=== PATIENT | female | born 1985 | race Caucasian/White ===

== ENCOUNTER 2020-05-25 11:06 | Emergency (ER) | payer OTHER, SELFPAY ==
[2020-05-25 11:16] VITALS: BP 133/88; PULSE 67; RESP 16; TEMP 36.6; O2SAT 98
--- NOTE | 2020-05-25 11:30 | ED.EXTPRO ---
HPI - Extremity Problem General Chief complaint: Extremity Problem,Nontraumatic Stated complaint: right arm pain Time Seen by Provider: 05/25/20 11:17 Source: patient and RN notes reviewed Mode of arrival: ambulatory Limitations: no limitations History of Present Illness HPI Narrative: Patient presents today complaining of right shoulder and arm pain radiating to the right wrist since waking up from sleep at 8 PM last night. Denies injury or trauma. Denies neck pain. She does report some mild tingling in fingers 2 and 3. Denies numbness. Currently rates her pain 6/10 and has been taking Tylenol without relief. MD Complaint: extremity pain Related Data Allergies Allergy/AdvReac Type Severity Reaction Status Date / Time blueberry Allergy Unknown Other Verified 05/25/20 11:17 COCONUT Allergy Unknown Difficulty Uncoded 05/25/20 11:18 Swallowing Review of Systems Review of Systems: Narrative: CONSTITUTIONAL: Denies body aches, fever, chills, or sweats. EYES: Denies visual changes, redness, or discharge. ENT: Denies rhinorrhea, congestion, sore throat, or otalgia. CARDIOVASCULAR: Denies chest pain, palpitations, or edema. RESPIRATORY: Denies cough or dyspnea. GASTROINTESTINAL: Denies abdominal pain, nausea, vomiting, or diarrhea. GENITOURINARY: Denies dysuria or hematuria. SKIN: Denies rash, itching, or wounds. MUSCULOSKELETAL: Denies back pain, or myalgia. + Right arm pain NEUROLOGIC: Denies headache, numbness, or weakness. + Tingling in right fingers 2 and 3 PSYCH: Denies depression or anxiety. PMFSH Social History Social History Gender identity (if verbalized by the patient): Female Comments At time of signature, I have reviewed and agree with nursing past medical, surgical, social and family history unless otherwise noted. Please see nursing chart for further information. There is no relevant family history pertinent to the presenting complaint Exam Narrative: Exam Narrative: GENERAL: Well-appearing, well-nourished, and in mild pain distress. Holding her arm at her side with elbow at 90 degrees. HEAD: Normocephalic, atraumatic. EYES: EOMI. No redness or drainage. Conjunctivae normal. ENT: Mucous membranes pink and moist. NECK: Normal AROM. Supple. No lymphadenopathy. Neck is nontender. CHEST: No respiratory distress. MUSCULOSKELETAL: No bony tenderness of spine. EXTREMITIES: Right arm: Full AROM of the shoulder, elbow, and wrist with increased pain. Tenderness about the shoulder, bicep, elbow, forearm, and wrist. No edema, erythema, ecchymosis, deformity noted. Distal sensation intact. Capillary refill normal. Radial pulse normal. Color normal. All other extremities grossly normal. SKIN: Warm, dry, no rash. Capillary refill normal. Normal skin turgor. NEURO: No focal deficits. Alert and oriented x3. Gait steady. PSYCH: Normal affect. No signs of depression or anxiety. Course Vital Signs Vital signs: Vital Signs Temperature 97.9 F 05/25/20 11:16 Pulse Rate 67 05/25/20 11:16 Respiratory Rate 16 05/25/20 11:16 Blood Pressure 133/88 05/25/20 11:16 Pulse Oximetry 98 05/25/20 11:16 Temperature 97.9 F 05/25/20 11:16 Pulse Rate 67 05/25/20 11:16 Respiratory Rate 16 05/25/20 11:16 Blood Pressure 133/88 05/25/20 11:16 Pulse Oximetry 98 05/25/20 11:16 Reviewed. Pt has been instructed to follow up with her PCP regarding her elevated blood pressure today. MDM - Extremity (Nontraumatic) Differential Diagnosis Differential diagnosis: Likely other (Cervical radiculopathy, muscle spasm, muscle strain, torticollis, nerve entrapment) Critical Care Time Critical Care Time Critical Care Time: No Discharge Plan Discharge Clinical Impression: Cervical radiculopathy Patient Disposition: Home, Self-Care Condition: Stable Instructions: Cervical Radiculopathy (ED) Additional Instructions: Your sym
== END 2020-05-25 11:35 | disposition home or self-care (01) ==
PROVIDERS: Emergency Provider Nurse Practitioner
DX: M54.12 Radiculopathy, cervical region (principal)
CPT/HCPCS: 99213; G0463

== ENCOUNTER → 2020-11-08 09:55 | Outpatient (CLI) | payer OTHER, SELFPAY ==
--- NOTE | ~2020-11-08 | XR_ITS ---
EXAMINATION: XR soft tissue neck DATE: 11/08/2020 10:15 INDICATION: Right neck mass. TECHNIQUE: 2 views of the neck soft tissues were obtained. COMPARISON: None. FINDINGS: The adenoids, palatine tonsils, prevertebral soft tissues, epiglottis, and airway are wen l. IMPRESSION: 1. Normal neck soft tissues. Reviewed, dictated and finalized at location A. R SCHOOL DRIVER
== END ==
PROVIDERS: PCP Emergency Medicine; Visit Provider Emergency Medicine
DX: M79.89 Other specified soft tissue disorders (principal)
CPT/HCPCS: 70360

== ENCOUNTER → 2021-05-16 12:39 | Outpatient (CLI) | payer OTHER, SELFPAY ==
--- NOTE | ~2021-05-16 | XR_ITS ---
EXAMINATION: XR knee LT min 4V DATE: 05/16/2021 12:54 INDICATION: Left knee pain. TECHNIQUE: 4 views of left knee were obtained. COMPARISON: None. FINDINGS: Bone alignment is normal. No fracture. There is mild tricompartmental osteoarthritis charac terized by tiny marginal osteophytes. No joint space narrowing. No knee joint effusion. IMPRESSION: 1. Mild left knee osteoarthritis. Reviewed, dictated and finalized at location A.
== END ==
PROVIDERS: PCP Emergency Medicine; Visit Provider Emergency Medicine
DX: M17.12 Unilateral primary osteoarthritis, left knee (principal)
CPT/HCPCS: 73564

== ENCOUNTER 2021-05-29 09:03 | Emergency (ER) | payer OTHER, SELFPAY ==
--- NOTE | ~2021-05-29 | XR_ITS ---
EXAMINATION: XR shoulder RT min 2V DATE: 05/29/2021 10:14 INDICATION: Right shoulder pain. TECHNIQUE: 5 views of right shoulder were obtained. COMPARISON: None. FINDINGS: Bone alignment is normal. No fracture. The glenohumeral joint is normal. There is severe ac romioclavicular joint osteoarthritis. IMPRESSION: 1. Severe right acromioclavicular joint osteoarthritis. Reviewed, dictated and finalized at location A.
[2021-05-29 09:11] VITALS: BP 130/94; PULSE 69; RESP 18; TEMP 36.4; O2SAT 100
--- NOTE | 2021-05-29 09:11 | ED.EXTPRO ---
HPI - Extremity Problem General Chief complaint: Extremity Injury, Upper Stated complaint: RIGHT SHOULDER PAIN Time Seen by Provider: 05/29/21 09:25 Source: patient and RN notes reviewed Mode of arrival: ambulatory Limitations: no limitations History of Present Illness HPI Narrative: 35-year-old female with history of anxiety, depression, cholecystectomy, ovarian cancer presents with concern for acute right shoulder pain. She denies any injury or trauma. Reports she had a dull ache in the area yesterday. Reports overnight she began having severe pain. Reports pain with raising the right arm and lowering the right arm. Reports lateral shoulder tenderness, reports right upper arm tenderness. She denies clavicular pain or tenderness, posterior shoulder pain or tenderness. She denies open skin, abrasions, lacerations, warmth, swelling. Denies fever, body aches. Reports she used ibuprofen and a modified sling. MD Complaint: extremity pain Related Data Allergies Allergy/AdvReac Type Severity Reaction Status Date / Time No Known Allergies Allergy Verified 05/29/21 09:32 Review of Systems Review of Systems: CONSTITUTIONAL: Denies malaise, chills, sweats, or fever. CARDIOVASCULAR: Denies chest pain, palpitations, or edema. RESPIRATORY: Denies cough or dyspnea. SKIN: Denies rash or itching. Denies laceration, abrasions, redness, swelling, warmth MUSCULOSKELETAL: Reports right shoulder pain radiating to the right upper arm NEUROLOGIC: Denies numbness, weakness All systems reviewed & are unremarkable except as noted in HPI and below PMFSH Social History Social History Gender identity (if verbalized by the patient): Female Comments At time of signature, agree with nursing past medical, surgical, social and family history. There is no relevant family history pertinent to the presenting complaint Exam Narrative: GENERAL: Well-appearing, well-nourished, and in no acute distress. HEAD: Normocephalic, atraumatic. EYES: PERRLA, conjunctivae clear NECK: Supple. CHEST: Speaks in full sentences. No respiratory distress. HEART: Regular rate and rhythm. Normal and equal peripheral pulses. EXTREMITIES: Right shoulder has normal sensation, normal range of motion. No edema or ecchymosis. 3/5 strength with shoulder abduction. Normal sensation with sensitivity to light touch and pain. Lateral shoulder joint, upper arm tenderness. No open wounds, no skin tenting, no devitalized tissue or atrophy, no trophic changes, no obvious deformity, alignment normal, nearby joints and structures intact. Distal pulses palpable and equal bilaterally, skin warm, dry, pink. Capillary refill less than 3 seconds. SKIN: Warm, dry, no rash. NEURO: Alert and oriented x3. PSYCH: Normal mood and affect Course Course Emergency Course: Ketorolac IM given prior to x-ray imaging. Patient is aware of diagnosis, understands and agrees to treatment plan. Anticipatory guidance given. Patient agrees to follow-up as directed and is aware of reasons to seek care at the emergency department. Portions of this record may have been created with voice recognition software Vital Signs Vital signs: Reviewed. Patient has been instructed to follow up with her primary care provider within the next week regarding her elevated blood pressure today. MDM - Extremity (Nontraumatic) MDM Narrative Medical decision making narrative: Patients pain is consistent with musculoskeletal etiology. No signs of neurological or vascular compromise on exam. Compartments and tissues are soft without signs of compartment syndrome. Pain is felt appropriate for further evaluation on an outpatient basis. Imaging Data My impression: Images reviewed, interpreted by radiologist, agree, see report. Radiologist's impression: EXAMINATION: XR shoulder RT min 2V DATE: 05/29/2021 10:14 INDICATION: Right shoulder pain. TECHNIQUE: 5 views of right shoulde
[2021-05-29] MEDS: KETOROLAC (*BKC) 60 MG/2 ML VIAL IM (09:41)
== END 2021-05-29 10:44 | disposition home or self-care (01) ==
PROVIDERS: Emergency Provider Nurse Practitioner; PCP Emergency Medicine
DX: M19.011 Primary osteoarthritis, right shoulder (principal); M25.511 Pain in right shoulder
CPT/HCPCS: 73030; 96372; 99213; A4565; G0463; J1885

== ENCOUNTER 2021-10-22 10:38 | Emergency (ER) | payer OTHER, SELFPAY ==
[2021-10-22] VITALS (24 sets, daily range): BP systolic 118–135; BP diastolic 68–105; PULSE 48–66; RESP 11–28; TEMP 36.4–37; O2SAT 97–100
--- NOTE | ~2021-10-22 | XR_ITS ---
EXAMINATION: XR chest 2V DATE: 10/22/2021 11:05 INDICATION: Chest pain with inspiration TECHNIQUE: PA and lateral views of the chest are obtained. COMPARISON: 06/10/2016 FINDINGS: There are minimal opacities of the right lung base. There is no pleural effusion or pneumot horax. The cardiomediastinal silhouette is normal. There is mild thoracic spondylosis. IMPRESSION: 1. Minimal right basilar airspace opacity, consistent with atelectasis versus pneumonia. Reviewed, dictated and finalized at location A. ET CONSULTANT IMPRESSION: 1. Minimal right basilar airspace opacity, consistent with atelectasis versus p neumonia.
--- NOTE | 2021-10-22 10:43 | ECG_ITS ---
Measurements Intervals [place] Rate: 63 P: 23 NE: 131 QRS: 8 QRSD: 86 T: 35 QT: 442 QTc: 456 Interpretive Statements SINUS RHYTHM ATRIAL PREMATURE COMPLEX DELAYED PRECORDIAL R/S TRANSITION BORDERLINE ECG Electronically Signed On 10-22-2021 15:39:56 PROJECT CONTROLS SPECIALIST by Layo Griffith D.O.
--- NOTE | 2021-10-22 10:50 | ED.CHESTPAIN ---
HPI - Chest Pain General Chief Complaint: Chest Pain Stated Complaint: chest pain Time Seen by Provider: 10/22/21 10:49 Source: patient Mode of arrival: ambulatory Limitations: no limitations History of Present Illness HPI narrative: Patient is a 36-year-old female complaining of right chest wall pain, sharp, worse with movement of the right upper extremity and deep breaths, 6 out of 10 pain, started yesterday. 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 Patient denies any shortness of breath, abdominal pain, nausea, vomiting, diaphoresis, fever or chills. Related Data Home Medications Medication Instructions Recorded Confirmed No Home Medications 10/22/21 10/22/21 Allergies Allergy/AdvReac Type Severity Reaction Status Date / Time No Known Allergies Allergy Verified 10/22/21 10:50 Review of Systems Review of Systems: All systems reviewed & are unremarkable except as noted in HPI and below Constitutional: Constitutional: Denies body ache(s), Denies chills, Denies excessive sweating, Denies fatigue, Denies fever(s), Denies headache(s), Denies lethargy, Denies malaise, Denies weakness and Denies weight loss Eyes: Eyes: Denies blurry vision, Denies change in vision and Denies loss of vision ENT: Denies dizziness, Denies ear discharge, Denies headache(s), Denies lip swelling, Denies epistaxis, Denies nasal congestion, Denies neck pain, Denies throat swelling and Denies tongue swelling Cardiovascular: Cardiovascular: Denies chest pain at rest, Denies diaphoresis, Denies rapid heart rate, Denies edema, Denies irregular heart rhythm, Denies lightheadedness, Denies palpitations, Denies dyspnea and Denies dyspnea on exertion Respiratory: Respiratory: Denies chest congestion, Denies cough, Denies hemoptysis, Denies dyspnea and Denies dyspnea on exertion Gastrointestinal: Gastrointestinal: Denies abdominal pain, Denies melena, Denies hematochezia, Denies diarrhea, Denies nausea, Denies vomiting and Denies hematemesis Musculoskeletal: Musculoskeletal: Denies abnormal gait, Denies deformity, Denies joint swelling, Denies limited range of motion, Denies neck pain and Denies numbness Neurologic: Denies Abnormal speech present, Denies abnormal gait, Denies confusion, Denies dizziness, Denies headache(s), Denies focal weakness, Denies loss of vision, Denies numbness, Denies Other visual disturbances, Denies Sensory deficit (Neuro) and Denies weakness Psychiatric: Psychiatric: Denies confusion, Denies depression, Denies auditory hallucinations, Denies homicidal ideation and Denies suicidal ideation Endocrine: Endocrine: Denies cold intolerance, Denies excessive sweating, Denies fatigue, Denies heat intolerance and Denies palpitations Hematologic/Lymphatic: Hematologic/Lymphatic: Denies easy bleeding and Denies easy bruising Allergic/Immunologic: Allergic/Immunologic: Denies lip swelling, Denies throat swelling and Denies tongue swelling PMFSH Past Medical History Medical History Right shoulder pain Surgical History Surgical History History of 2004: Charo Shoemaker, 2005: Charo Garcia, /tubal 2011: Kailey Mc History of dilatation and curettage 2020, Kailey Mc History of oophorectomy R ovary, 2011, Dr. cM History of prior ablation treatment 2020, Kailey Mc Family History Family History Other Asthma Depression Diabetes mellitus Family history of arthritis Family history of cancer Family history of high cholesterol Family history of stroke Hypertension Social History Social History Years smoked: 5 Smoking status: Current every day smoker Tobacco type: e-cigarettes/vaping Alcohol intake: former Substance use: n
[2021-10-22] MEDS: ASPIRIN 81 MG CHEWABLE TABLET 324 MG PO (10:54)
[2021-10-22 10:55] LABS: Basophils Absolute Auto 0.1 K/mm3 (0.0-0.1); Basophils Percent Auto 0.5 % (0.2-1.2); Eosinophils Absolute Auto 0.1 K/mm3 (0-0.3); Eosinophils Percent Auto 1.3 % (0-4.4); Hematocrit 39.3 % (37.0-47.0); Immature Granulocyte Absolute 0.04 K/mm3 (0.00-0.031); Immature Granulocyte Percent A 0.4 % (0-0.5); Lymphocytes Absolute Auto 3.15 K/mm3 (0.9-3.2); Lymphocytes Percent Auto 31.5 % (18.3-44.2); Mean Corpuscular HGB Conc 33.1 g/dl (32-36); Mean Corpuscular Hemoglobin 30.2 pg (26-34); Mean Corpuscular Volume 91.2 fl (80-100); Mean Platelet Volume 9.8 fl (7.4-10.4); Monocytes Absolute Auto 0.9 K/mm3 (0.1-0.6); Monocytes Percent Auto 9.1 % (2.6-8.5); Neutrophils Absolute Auto 5.7 K/mm3 (1.3-6.7); Neutrophils Percent Auto 57.2 % (45.5-73.1); Platelet Count Result 252 k/mm3 (150-375); Red Blood Count 4.31 M/mm3 (4.2-5.4); Red Cell Distribution Width 12.9 % (11.5-14.5)
[2021-10-22 11:01] LABS: INR 0.9; Prothrombin Time 12.2 Seconds (11.1-14.7)
[2021-10-22 11:02] LABS: Partial Thromboplastin Time 25.9 SECONDS (22.3-36.8)
[2021-10-22 11:24] LABS: Alanine Aminotransferase 23 U/L (4-35); Albumin Level 4.1 g/dL (3.5-5.1); Alkaline Phosphatase 115 U/L (38-126); Anion Gap 6 mmol/L (8-16); Aspartate Amino Transferase 28 U/L (14-36); Bilirubin,Total 0.4 mg/dL (0.2-1.3); Blood Urea Nitrogen 15 mg/dL (7-17); Calcium 9.1 mg/dL (8.4-10.2); Carbon Dioxide 29 mmol/L (22-30); Chloride 102 mmol/L (98-107); Estimated CRCL calculation 151 ml/min; Estimated Glomerular Filt Rate > 60; Glucose 95 mg/dL (65-110); Lipase 69 U/L (23-300); Potassium 4.2 mmol/L (3.4-5.0); Sodium 137 mmol/L (137-145)
[2021-10-22 11:35] LABS: Troponin I 0.023 ng/mL (0.000-0.034)
[2021-10-22 14:14] LABS: Troponin I < 0.012 ng/mL (0.000-0.034)
[2021-10-22 14:15] LABS: D Dimer 0.41 ug/mL (<0.48)
--- NOTE | 2021-10-22 14:54 | PC.NURSE ---
PT REFUSING TORADOL REPORTS SHE DOES NOT HAVE ANY JACOB AT THIS TIME SINCE TAKING ASPIRIN
== END 2021-10-22 15:31 | disposition home or self-care (01) ==
PROVIDERS: Emergency Provider Emergency Medicine; PCP Emergency Medicine
DX: R07.89 Other chest pain (principal); F17.290 Nicotine dependence, other tobacco product, uncomplicated; I49.1 Atrial premature depolarization
CPT/HCPCS: 36415; 71046; 80053; 83690; 84484; 85025; 85380; 85610; 85730; 93005; 99284; A9270

== ENCOUNTER → 2021-11-06 11:38 | Outpatient (CLI) | payer OTHER, SELFPAY ==
--- NOTE | ~2021-11-06 | XR_ITS ---
EXAMINATION: XR chest 2V 11/06/2021 11:53 INDICATION: Right-sided pneumonia. PROCEDURE: 2 view chest COMPARISON: 10/22/2021 FINDINGS: The lungs are clear. The cardiomediastinal silhouette is within normal limits. There are no pleural effusions. There is no pneumothorax suspected. IMPRESSION: 1: NO ACUTE CARDIOPULMONARY DISEASE. Reviewed, dictated and finalized at location A. ICAL ONCOLOGIST
== END ==
PROVIDERS: PCP Emergency Medicine; Visit Provider Emergency Medicine
DX: J18.9 Pneumonia, unspecified organism (principal)
CPT/HCPCS: 71046

== ENCOUNTER → 2022-02-28 02:20 | Outpatient (CLI) | payer OTHER, MEDICAID, SELFPAY ==
[2022-02-28 12:38] LABS: SARS-CoV-2 RNA PCR Positive
== END ==
PROVIDERS: PCP Emergency Medicine; Visit Provider Emergency Medicine
DX: U07.1 COVID-19 (principal)
CPT/HCPCS: C9803; U0003; U0005

== ENCOUNTER → 2022-03-07 03:06 | Outpatient (CLI) | payer OTHER, MEDICAID, SELFPAY ==
[2022-03-07 16:50] LABS: SARS-CoV-2 RNA PCR Negative
== END ==
PROVIDERS: PCP Emergency Medicine; Visit Provider Emergency Medicine
DX: R68.89 Other general symptoms and signs (principal); Z20.822 Contact with and (suspected) exposure to COVID-19
CPT/HCPCS: C9803; U0003; U0005

== ENCOUNTER 2022-05-02 12:45 | Emergency (ER) | payer OTHER, MEDICAID, SELFPAY ==
[2022-05-02 13:05] VITALS: BP 124/78; PULSE 71; RESP 18; TEMP 35.9; O2SAT 98
--- NOTE | 2022-05-02 13:20 | PC.NURSE ---
fnp in doing exam and stated to go to er f/u ct. principal of school is in waiting area and will provide transportation to er for further evaluation per family member at bedside.
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
== END 2022-05-02 13:30 | disposition short-term general hospital (02) ==
PROVIDERS: Emergency Provider Nurse Practitioner; PCP Emergency Medicine
DX: S09.90XA Unspecified injury of head, initial encounter (principal); Y04.0XXA Assault by unarmed brawl or fight, initial encounter; Y99.0 Civilian activity done for income or pay
CPT/HCPCS: 99212; G0463

== ENCOUNTER 2022-05-02 13:53 | Emergency (ER) | payer OTHER, MEDICAID, SELFPAY ==
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
[2022-05-02 14:14] VITALS: BP 145/99; PULSE 65; RESP 20; TEMP 36.2; O2SAT 100
[2022-05-02 15:51] VITALS: BP 151/91; PULSE 97; RESP 14; O2SAT 100
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
== END 2022-05-02 18:45 | disposition home or self-care (01) ==
PROVIDERS: Emergency Provider Emergency Medicine; PCP Emergency Medicine
DX: R51.9 Headache, unspecified (principal); Z86.2 Personal history of diseases of the blood and blood-forming organs and certain disorders involving the immune mechanism; Z90.721 Acquired absence of ovaries, unilateral; F17.290 Nicotine dependence, other tobacco product, uncomplicated; W51.XXXA Accidental striking against or bumped into by another person, initial encounter
CPT/HCPCS: 70450; 70486; 99284

== ENCOUNTER 2022-07-11 12:50 | Emergency (ER) | payer OTHER, MEDICAID, SELFPAY ==
[2022-07-11 13:36] VITALS: BP 121/70; PULSE 92; RESP 18; TEMP 36.6; O2SAT 98
[2022-07-11 14:08] LABS: Basophils Absolute Auto 0.1 K/mm3 (0.0-0.1); Basophils Percent Auto 0.4 % (0.2-1.2); Eosinophils Absolute Auto 0.2 K/mm3 (0-0.3); Eosinophils Percent Auto 1.2 % (0-4.4); Hematocrit 42.9 % (37.0-47.0); Hemoglobin 14.5 g/dL (12.0-15.0); Immature Granulocyte Absolute 0.05 K/mm3 (0.00-0.031); Immature Granulocyte Percent A 0.4 % (0-0.5); Lymphocytes Absolute Auto 3.25 K/mm3 (0.9-3.2); Lymphocytes Percent Auto 26.8 % (18.3-44.2); Mean Corpuscular HGB Conc 33.8 g/dl (32-36); Mean Corpuscular Hemoglobin 30.4 pg (26-34); Mean Corpuscular Volume 89.9 fl (80-100); Mean Platelet Volume 9.7 fl (7.4-10.4); Monocytes Absolute Auto 0.8 K/mm3 (0.1-0.6); Monocytes Percent Auto 6.8 % (2.6-8.5); Neutrophils Absolute Auto 7.8 K/mm3 (1.3-6.7); Neutrophils Percent Auto 64.4 % (45.5-73.1); Platelet Count Result 292 k/mm3 (150-375); Red Blood Count 4.77 M/mm3 (4.2-5.4); Red Cell Distribution Width 12.6 % (11.5-14.5); White Blood Count 12.1 K/mm3 (4.5-10.0)
[2022-07-11 14:27] LABS: Alanine Aminotransferase 26 U/L (6-35); Albumin Level 4.7 g/dL (3.5-5.1); Alkaline Phosphatase 126 U/L (38-126); Anion Gap 14 mmol/L (8-16); Aspartate Amino Transferase 31 U/L (14-36); Bilirubin,Total 0.4 mg/dL (0.2-1.3); Blood Urea Nitrogen 21 mg/dL (7-17); Carbon Dioxide 28 mmol/L (22-30); Chloride 97 mmol/L (98-107); Estimated CRCL calculation 115 ml/min; Estimated Glomerular Filt Rate > 60; Glucose 135 mg/dL (65-110); Lipase 54 U/L (23-300); Potassium 3.9 mmol/L (3.4-5.0); Sodium 139 mmol/L (137-145)
[2022-07-11 15:30] LABS: Appearance Urine Slightly Cloudy (Clear); Bilirubin Urine 1+ (Negative); Blood Urine Negative (Negative); Color Urine Yellow (Yellow); Glucose Urine UA Negative (Negative); Ketones Urine Trace mg/dL (Negative); Leukocyte Esterase Ur Negative LEU/UL (Negative); Nitrate Urine Negative (Negative); Protein Urine Negative (Negative); Specific Grav Ur 1.025 (1.001-1.035); Urobilinogen Urine 0.2 mg/dL (<2.0); pH Urine 5.5 (5.0-9.0)
[2022-07-11 15:37] LABS: Mucus Urine Few /lpf; Squamous Epithelial Cell Urine Moderate /hpf (Few); WBC Urine 0-3 /hpf
[2022-07-11 15:40] LABS: Add Urine Microscopic? YES
--- NOTE | 2022-07-11 15:46 | ED.FEMALEGU ---
HPI - Female Genitourinary General Chief complaint: Urogenital-Female Stated complaint: send by PCP for blood in urine Time Seen by Provider: 07/11/22 14:39 History of Present Illness HPI Narrative: Pt is a 37 y/o female, PMHx of newly diagnosed HTN, for which she started Lisinopril/HCTZ 4 days ago, presents to ED via POV from her PCP office after presenting there for 5 day hx of low grade fevers, nasal congestion, bodyaches and mild rhinorrhea. She does not have a cough. She was tested for COV and her results were negative. Tmax was 100F. She notes she is starting to feel better but was required to see her PCP for a return to work note. Her PCP sent her here as she reports she had microscopic blood in her urine. She denies associated urinary symptoms, flank pain or hx of renal colic. She is taking OTC medications with symptom relief. 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 She denies any other associated symptoms or modifying factors. Related Data Home Medications Medication Instructions Recorded Confirmed No Home Medications 10/22/21 10/22/21 Allergies Allergy/AdvReac Type Severity Reaction Status Date / Time No Known Allergies Allergy Verified 05/02/22 15:51 Review of Systems Review of Systems: refer to [facility] Past Medical History Medical History Abnormal Pap smear of cervix 2005; 09/20/15 ascus (+) HPV + GC Anemia Anxiety Depression Gonorrhea (09/20/15) HPV in female Pelvic inflammatory disease Right shoulder pain Surgical History Surgical History History of 2004: Charo Shoemaker, 2005: Charo Garcia, /tubal 2011: Kailey Mc History of cholecystectomy (11/01/14) History of [place] [facility] [place] [place]benign History of endometrial ablation 03/21/[place] [facility] [place] endometrial [place] History of oophorectomy 2011 [facility]scope rt oophorectomy History of tubal ligation (~2010) Family History Family History Father Diabetes mellitus Acute myocardial infarction Malignant neoplasm of prostate Mother Diabetes mellitus Other Asthma Depression Family history of arthritis Family history of cancer Family history of high cholesterol Hypertension Social History Social History Years smoked: 5 Smoking status: Current every day smoker Tobacco type: e-cigarettes/vaping Alcohol intake: former Substance use: never 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[employer] Gender identity (if verbalized by the patient): Female Exam Const: General: healthy appearing Orientation/consciousness: patient oriented x3 Limitations: no limitations HENMT: Head: normal to inspection Ears: external ears normal Face/Nose/Sinus: Normal external nose present Face and sinus: normal facial exam Mouth: Yes Normal oral and palatal mucosa present Other: edentulous Neck: Neck: normal visual inspection Chest: Chest palpation & inspection: normal inspection of the chest Resp: Effort & Inspection: normal respiratory effort Cardio: Rate: regular rate Rhythm: regular rhythm Back/Spine/Pelvis: Back: no CVA tenderness Skin: General skin exam: normal color Rashes: no rashes Neuro: General: patient oriented x3 Speech: normal speech Gait exam (Neuro): Normal gait present Extrem: General: normal to inspection, no clubbing, cyanosis or edema and no pedal edema Course Course Emergency Course: Pt has mild leukocytosis without a shift. She is feeling improved. Her urine sample is negative for blood or WBC. Plan therefore, to discharge home with continued supportive care, FU with PCP next week, return to work Thursday if she remains fever free for 24 hour
== END 2022-07-11 16:15 | disposition home or self-care (01) ==
PROVIDERS: Emergency Medicine; Emergency Provider Nurse Practitioner Family; PCP Emergency Medicine
DX: B34.9 Viral infection, unspecified (principal); I10 Essential (primary) hypertension; Z90.721 Acquired absence of ovaries, unilateral; F17.290 Nicotine dependence, other tobacco product, uncomplicated
CPT/HCPCS: 36415; 80053; 81001; 83690; 85025; 99283

== ENCOUNTER 2022-09-15 07:59 | Emergency (ER) | payer OTHER, MEDICAID, SELFPAY ==
--- NOTE | ~2022-09-15 | XR_ITS ---
EXAMINATION: XR chest 2V DATE: 09/15/2022 08:54 INDICATION: Right chest pain. TECHNIQUE: Frontal and lateral views of the chest were obtained. COMPARISON: Chest 2 views 11/06/2021 FINDINGS: The chest demonstrates clear lungs without pneumonia, pleural effusion, or pneumothorax. Th e heart size is normal. IMPRESSION: 1. No acute cardiopulmonary disease. Reviewed, dictated and finalized at location A. HER EDUCATION DIRECTOR
--- NOTE | ~2022-09-15 | CT_ITS ---
EXAMINATION: CTA chest PE abdomen pel DATE: 09/15/2022 09:43 INDICATION: Chest pain. Dyspnea. TECHNIQUE: Computed tomography angiography (CTA) of the chest was performed with 100 mL Omnipaque-350 intravenous contrast timed to evaluate the pulmonary arteries. Coronal maximum intensity projection 3D-reconstructions were created by the technologist. Computed tomography (CT) of the abdomen and pelv is was performed with intravenous contrast. Automated exposure control and iterative reconstruction t echnique were employed. The dose-length product was 2506.34 mGy-cm. COMPARISON: CT abdomen and pelvis 01/13/2008 FINDINGS: CTA chest: The lungs demonstrate mild atelectasis. There is mild scarring in paraspinal right lower l obe. No pleural effusion. There are ill-defined nodules in the thyroid measuring up to 19 mm . The he art size is normal. No pericardial effusion. There is no pulmonary embolus. There is mild thoracic sp ondylosis. CT abdomen and pelvis: The liver is normal. There are changes of cholecystectomy. The spleen, pancrea s, and adrenal glands are normal. There is cortical thinning of the kidneys. There is diverticulosis of the colon without evidence of diverticulitis. There are no dilated loops of bowel. The appendix is normal. There are no pathologically enlarged lymph nodes. There is no free intraperitoneal fluid. Th ere is severe lower lumbar spondylosis. IMPRESSION: 1. No pulmonary embolus. 2. Multinodular goiter. Consider thyroid ultrasound for risk stratification. Reviewed, dictated and finalized at location A. IGN STUDENT ADVISER
[2022-09-15 08:02] VITALS: BP 149/97; PULSE 75; RESP 16; TEMP 37.3; O2SAT 98
--- NOTE | 2022-09-15 08:21 | ED.GENADULT ---
HPI - General Adult General Chief complaint: Unspecified Stated complaint: R sided pain x 2 weeks Time Seen by Provider: 09/15/22 08:01 Source: RN notes reviewed History of Present Illness HPI narrative: Patient presents emergency department from home for right-sided abdomen and back pain. Patient states the pain began 2 weeks ago and has been constant the pain is located in the right upper abdomen and lower chest and radiates around to the right back. States that wraps from just underneath her breast around to the back pain is described as sharp and stabbing is worse with any sort of movement or sitting upright. She states she did take ibuprofen for the pain last night with minimal relief she denies any fevers or chills she denies any chest pain or shortness of breath she denies any nausea vomiting diarrhea or any other symptoms. States she has not had any rash but is had no previous work-up Related Data Home Medications Medication Instructions Recorded Confirmed hydrochlorothiazide 12.5 mg tablet mg 09/15/22 09/15/22 lisinopril 10 mg tablet mg 09/15/22 Allergies Allergy/AdvReac Type Severity Reaction Status Date / Time No Known Allergies Allergy Verified 05/02/22 15:51 Review of Systems Review of Systems: Gen.: Denies fevers or chills ENT: Denies congestion Respiratory: Denies shortness of breath or cough CV: Denies chest pain or palpitations GI: Reports right upper abdominal pain, denies nausea, emesis or diarrhea denies burning, urgency, frequency or hematuria Musculoskeletal: Right-sided back pain denies any muscle pain Neuro: Denies numbness, tingling, weakness or focal weakness Skin: Denies rash Except as documented, all other systems reviewed and negative [facility] Past Medical History Medical History Abnormal Pap smear of cervix 2005; 09/20/15 ascus (+) HPV + GC Anemia Anxiety Depression Gonorrhea (09/20/15) HPV in female Pelvic inflammatory disease Right shoulder pain Surgical History Surgical History History of 2004: Charo Shoemaker, 2005: Charo Garcia, /tubal 2011: Kailey Mc History of cholecystectomy (11/01/14) History of dilatation and curettage 02/21/21 [facility] d&c--benign History of endometrial ablation 03/21/21 [facility] endometrial ablation History of oophorectomy 2012 lscope rt oophorectomy History of tubal ligation (~2010) Family History Family History Father Diabetes mellitus Acute myocardial infarction Malignant neoplasm of prostate Mother Diabetes mellitus Other Asthma Depression Family history of arthritis Family history of cancer Family history of high cholesterol Hypertension Social History Social History Years smoked: 5 Smoking status: Current every day smoker Tobacco type: e-cigarettes/vaping Alcohol intake: former Substance use: never 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[employer] Gender identity (if verbalized by the patient): Female Exam Narrative: APPEARANCE: No acute distress, nontoxic, resting in bed HEENT: Normocephalic, atraumatic, OMM RESPIRATORY: No respiratory distress, clear to auscultation bilaterally with no rhonchi wheezing or rales CARDIOVASCULAR: RRR s murmur ABDOMINAL: Soft nondistended tender to palpation in the right upper quadrant no tenderness in the right lower quadrant, left upper quadrant and left lower quadrant no rebound or guarding pain increased with sitting upright Back: No midline thoracic or lumbar tenderness palpation tender palpation right paravertebral muscles T6-8 pain increased with rotation of the torso and sitting upright MUSCULOSKELETAl: Moves all extremities. No clubbing, cyanosis or edema. NEURO: Awake and alert. Follo
[2022-09-15 08:42] LABS: Basophils Absolute Auto 0.1 K/mm3 (0.0-0.1); Basophils Percent Auto 0.6 % (0.2-1.2); Eosinophils Absolute Auto 0.1 K/mm3 (0-0.3); Eosinophils Percent Auto 1.7 % (0-4.4); Hematocrit 39.7 % (37.0-47.0); Hemoglobin 13.3 g/dL (12.0-15.0); Immature Granulocyte Absolute 0.04 K/mm3 (0.00-0.031); Immature Granulocyte Percent A 0.5 % (0-0.5); Lymphocytes Absolute Auto 2.43 K/mm3 (0.9-3.2); Lymphocytes Percent Auto 29.2 % (18.3-44.2); Mean Corpuscular HGB Conc 33.5 g/dl (32-36); Mean Corpuscular Hemoglobin 30.2 pg (26-34); Mean Platelet Volume 9.8 fl (7.4-10.4); Monocytes Absolute Auto 0.7 K/mm3 (0.1-0.6); Monocytes Percent Auto 8.3 % (2.6-8.5); Neutrophils Percent Auto 59.7 % (45.5-73.1); Platelet Count Result 253 k/mm3 (150-375); Red Blood Count 4.41 M/mm3 (4.2-5.4); Red Cell Distribution Width 12.7 % (11.5-14.5); White Blood Count 8.3 K/mm3 (4.5-10.0)
[2022-09-15] MEDS: KETOROLAC 30 MG/ML VIAL (*BKC) IV PUSH (08:45)
[2022-09-15 08:52] LABS: Alanine Aminotransferase 27 U/L (6-35); Albumin Level 4.1 g/dL (3.5-5.1); Alkaline Phosphatase 121 U/L (38-126); Anion Gap 6 mmol/L (8-16); Aspartate Amino Transferase 26 U/L (14-36); Bilirubin,Total 0.2 mg/dL (0.2-1.3); Blood Urea Nitrogen 12 mg/dL (7-17); Calcium 8.5 mg/dL (8.4-10.2); Carbon Dioxide 26 mmol/L (22-30); Chloride 106 mmol/L (98-107); Estimated CRCL calculation 170 ml/min; Estimated Glomerular Filt Rate > 60; Glucose 114 mg/dL (65-110); Lipase 61 U/L (23-300); Sodium 138 mmol/L (137-145)
[2022-09-15 09:02] LABS: Add Urine Microscopic? YES; Appearance Urine Clear (Clear); Bilirubin Urine Negative (Negative); Blood Urine 1+ (Negative); Color Urine Yellow (Yellow); Glucose Urine UA Negative (Negative); Ketones Urine Negative (Negative); Leukocyte Esterase Ur Negative LEU/UL (Negative); Nitrate Urine Negative (Negative); Protein Urine Negative (Negative); Urobilinogen Urine 0.2 mg/dL (<2.0)
[2022-09-15 09:04] LABS: Troponin I < 0.012 ng/mL (0.000-0.034)
[2022-09-15 09:13] LABS: Mucus Urine Rare /lpf; RBC Urine 0-2 /hpf (0-2); Squamous Epithelial Cell Urine Rare /hpf (Few); WBC Urine 0-3 /hpf
[2022-09-15 09:18] LABS: D Dimer 0.68 ug/mL (<0.48)
--- NOTE | 2022-09-15 10:13 | ECG_ITS ---
Measurements Intervals [place] Rate: 60 P: 32 MA: 120 QRS: 1 QRSD: 89 T: 40 QT: 451 QTc: 452 Interpretive Statements SINUS RHYTHM BORDERLINE R WAVE PROGRESSION, ANTERIOR LEADS BORDERLINE ECG COMPARED TO ECG 10/22/2021 10:47:08 NO SIGNIFICANT CHANGES Electronically Signed On 09-15-2022 10:31:02 MUFFLER MECHANIC by Layo Griffith D.O.
[2022-09-15 10:21] VITALS: BP 147/103; PULSE 69; RESP 18; O2SAT 99
== END 2022-09-15 10:41 | disposition home or self-care (01) ==
PROVIDERS: Emergency Provider Emergency Medicine; PCP Emergency Medicine
DX: R10.11 Right upper quadrant pain (principal); Z86.2 Personal history of diseases of the blood and blood-forming organs and certain disorders involving the immune mechanism; Z90.721 Acquired absence of ovaries, unilateral; F17.290 Nicotine dependence, other tobacco product, uncomplicated; E04.2 Nontoxic multinodular goiter; R94.31 Abnormal electrocardiogram [ECG] [EKG]
CPT/HCPCS: 36415; 71046; 71275; 74177; 80053; 81001; 81025; 83690; 84484; 85025; 85380; 93005; 96374; 99284; J1885; Q9967

== ENCOUNTER → 2022-11-28 10:09 | Outpatient (CLI) | payer OTHER, MEDICAID, SELFPAY ==
--- NOTE | ~2022-11-28 | XR_ITS ---
Thoracic spine: Clinical Indication: Back pain AP and lateral views were performed. No fracture is seen. There is normal alignment of the vertebrae. The intervertebral disc spaces appe ar normal. Paravertebral soft tissues appear normal. Impression: No significant abnormalities noted. Reviewed, dictated and finalized at [facility]. Impression: No significant abnormalities noted.
--- NOTE | ~2022-11-28 | XR_ITS ---
Lumbosacral Spine: AP and lateral views Clinical History: Pain Findings: The normal lordotic curve is maintained. No fracture or subluxation evident. There is advan alex degenerative disc narrowing at L5-S1. Remaining disc spaces are preserved. The sacroiliac joints are normally outlined. Impression: Advanced degenerative disc narrowing at L5-S1. Reviewed, dictated and finalized at [facility]. Impression: Advanced degenerative disc narrowing at L5-S1.
== END ==
PROVIDERS: PCP Emergency Medicine; Visit Provider Emergency Medicine
DX: M54.50 Low back pain, unspecified (principal); F41.9 Anxiety disorder, unspecified; I10 Essential (primary) hypertension
CPT/HCPCS: 72072; 72100

== ENCOUNTER 2022-12-05 13:29 | Outpatient (CLI) | payer OTHER, MEDICAID, SELFPAY ==
--- NOTE | ~2022-12-05 | US_ITS ---
EXAMINATION: US thyroid DATE: 12/05/2022 14:42 INDICATION: Multinodular goiter. TECHNIQUE: Multiple ultrasound images of the thyroid were obtained. COMPARISON: None. FINDINGS: The right thyroid lobe measures 6.8 x 2.4 x 3.0 cm. The left thyroid lobe measures 5.6 x 1.9 x 2.4 c m. In the right thyroid lobe, there is a 3.2 cm solid, hypoechoic, wider than tall nodule with lobul ated margin and macrocalcification (TI-RADS TR5). In the left thyroid lobe, there is a 9 mm, solid, h ypoechoic, wider than tall nodule with smooth margin without echogenic foci (TR4). IMPRESSION: 1. Thyroid nodules. Ultrasound-guided fine-needle aspiration of the right thyroid nodule is recommend ed. Reviewed, dictated and finalized at location A. IMPRESSION: 1. Thyroid nodules. Ultrasound-guided fine-needle aspiration of the right thyro id nodule is recommended.
== END 2022-12-05 13:30 | disposition home or self-care (01) ==
LOC: ANHIMG 13:34
PROVIDERS: PCP Emergency Medicine; Visit Provider Emergency Medicine
DX: E04.2 Nontoxic multinodular goiter (principal)
CPT/HCPCS: 76536

== ENCOUNTER 2023-06-16 08:20 | Emergency (ER) | payer OTHER, SELFPAY ==
[2023-06-16 08:31] VITALS: BP 143/86; PULSE 70; RESP 16; TEMP 36.6; O2SAT 98
[2023-06-16 08:32] VITALS: BP 143/86; PULSE 70; RESP 16; TEMP 36.6; O2SAT 98
--- NOTE | 2023-06-16 08:40 | ED.URI ---
HPI - URI/Sore Throat General Chief Complaint: Upper Respiratory Infection Stated Complaint: Sinus/SOB Time Seen by Provider: 06/16/23 08:40 Source: patient Mode of arrival: ambulatory Limitations: no limitations History of Present Illness HPI Narrative: Patient is a 38-year-old female who presents with 2 weeks of congestion and productive cough. Patient has tried NyQuil, DayQuil and Mucinex with no relief. Patient denies any fevers, chills, sore throat, ear pain. Patient reports coughing is worse at night. Denies any nausea, vomiting, diarrhea. Denies any sick contacts Related Data Allergies Allergy/AdvReac Type Severity Reaction Status Date / Time No Known Allergies Allergy Verified 06/16/23 08:31 Review of Systems Review of Systems: All systems reviewed & are unremarkable except as noted in HPI and below Constitutional: Constitutional: Denies body ache(s), Denies chills, Denies fatigue, Denies fever(s), Denies headache(s), Denies malaise and Denies weakness Eyes: Eyes: Denies blurry vision, Denies itchy eyes and Denies loss of vision ENT: Denies otalgia, Denies headache(s), Reports nasal congestion, Denies sinus pain and Denies sore throat Cardiovascular: Cardiovascular: Denies chest pain, Denies irregular heart rhythm and Denies dyspnea Respiratory: Respiratory: Reports cough and Denies dyspnea Gastrointestinal: Gastrointestinal: Denies abdominal pain, Denies diarrhea, Denies nausea and Denies vomiting Musculoskeletal: Musculoskeletal: Denies back pain, Denies myalgias and Denies arthralgias Integumentary/Breasts: Skin/Breast: Denies pruritus and Denies rash Neurologic: Denies headache(s), Denies loss of vision and Denies weakness Psychiatric: Psychiatric: Reports no additional psychiatric complaints Endocrine: Endocrine: Denies fatigue Allergic/Immunologic: Allergic/Immunologic: Denies itchy eyes PMFSH Past Medical History Medical History Abnormal Pap smear of cervix 2005; 09/20/15 ascus (+) HPV + GC Anemia Anxiety Depression Gonorrhea (09/20/15) HPV in female Pelvic inflammatory disease Right shoulder pain Surgical History Surgical History History of 2004: Charo Shoemaker, 2005: Charo Garcia, /tubal 2011: Kailey Mc History of cholecystectomy (11/01/14) History of dilatation and curettage 02/21/21 [facility] d&c--benign History of endometrial ablation 03/21/21 [facility] endometrial ablation History of oophorectomy 2012 lscope rt oophorectomy History of tubal ligation (~2010) Family History Family History Father Diabetes mellitus Acute myocardial infarction Malignant neoplasm of prostate Mother Diabetes mellitus Other Asthma Depression Family history of arthritis Family history of cancer Family history of high cholesterol Hypertension Social History Social History Years smoked: 5 Smoking status: Current every day smoker Tobacco type: e-cigarettes/vaping Alcohol intake: former Substance use: never Living arrangements: with family Occupation/Education: occupation 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 There is no relevant family history pertinent to the presenting complaint. Exam Const: General: cooperative, healthy appearing, comfortable, no acute distress and well nourished Nutritional Appearance: well nourished Orientation/consciousness: patient oriented x3 Limitations: no limitations HENMT: Head: normal to inspection, normocephalic and atraumatic Ears: hearing grossly normal bilaterally, external ears normal, T
== END 2023-06-16 09:19 | disposition home or self-care (01) ==
PROVIDERS: Emergency Provider Nurse Practitioner Family; PCP Emergency Medicine
DX: J32.9 Chronic sinusitis, unspecified (principal); J40 Bronchitis, not specified as acute or chronic; Z20.822 Contact with and (suspected) exposure to COVID-19; F17.290 Nicotine dependence, other tobacco product, uncomplicated
CPT/HCPCS: 87426; 87804; 99213; C9803; G0463

== ENCOUNTER 2023-08-17 10:21 | Emergency (ER) | payer OTHER, SELFPAY ==
[2023-08-17 10:37] VITALS: BP 137/95; PULSE 77; RESP 16; TEMP 37.1; O2SAT 100
--- NOTE | 2023-08-17 10:58 | ED.URI ---
HPI - URI/Sore Throat General Chief Complaint: Upper Respiratory Infection Stated Complaint: bodyaches,cough,stuffiness Time Seen by Provider: 08/17/23 11:28 Source: patient and RN notes reviewed Mode of arrival: ambulatory Limitations: no limitations History of Present Illness HPI Narrative: 38 Year old female presents concern for 5 day history of fever, body aches, sore throat, chills, cough. Reports [id number] medications she has been taking are not helping. MD elicited complaint: fever and cough Related Data Allergies Allergy/AdvReac Type Severity Reaction Status Date / Time No Known Allergies Allergy Verified 08/17/23 10:32 Review of Systems Review of Systems: CONSTITUTIONAL: Reports malaise, chills, fever. EYES: Denies visual changes, redness, or discharge. ENT: Reports rhinorrhea, congestion, otalgia and sore throat. CARDIOVASCULAR: Denies chest pain, palpitations, or edema. RESPIRATORY: Reports cough. Denies dyspnea. GASTROINTESTINAL: Denies abdominal pain, nausea, vomiting, diarrhea SKIN: Denies rash or itching. MUSCULOSKELETAL: Reports myalgia. NEUROLOGIC: Denies headache. All systems reviewed & are unremarkable except as noted in HPI and below PMFSH Past Medical History Medical History Abnormal Pap smear of cervix 2005; 09/20/15 ascus (+) HPV + GC Anemia Anxiety Depression Gonorrhea (09/20/15) HPV in female Pelvic inflammatory disease Right shoulder pain Surgical History Surgical History History of 2004: Charo Shoemaker, 2005: Charo Garcia, /tubal 2011: Kailey Mc History of cholecystectomy (11/01/14) [facility] [facility] [place] [place] of [facility] [place] [place] History of oophorectomy 2012 lscope rt oophorectomy History of tubal ligation (~2010) Family History Family History Father Diabetes mellitus Acute myocardial infarction Malignant neoplasm of prostate Mother Diabetes mellitus Other Asthma Depression Family history of arthritis Family history of cancer Family history of high cholesterol Hypertension Social History Social History Years smoked: 5 Smoking status: Current every day smoker Tobacco type: e-cigarettes/vaping Alcohol intake: former Substance use: never Living arrangements: with family Occupation/Education: occupation 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 There is no relevant family history pertinent to the presenting complaint Exam Narrative: GENERAL: Nontoxic-appearing, well-nourished, and in no acute distress. HEAD: Normocephalic EYES: PERRLA, conjunctivae clear ENT: Nares clear, turbinates edematous and erythematous. Mucous membranes moist. TM pearly cruz with dull light reflex bilaterally; no tragal tenderness. Oropharynx not erythematous without lesions. Tonsils not enlarged and without exudate, no drooling, no hoarseness, no trismus, uvula midline. NECK: Supple. No lymphadenopathy CHEST: Clear to auscultation, breath sounds equal. No wheezing, rhonchi, rales, or stridor. No respiratory distress, speaks in full sentences. HEART: Regular rate and rhythm. No murmur heard. SKIN: Warm, dry, no rash. NEURO: Alert and oriented x3. PSYCH: Normal mood and affect Course Course Emergency Course: Patient is aware of diagnosis, understands and agrees to treatment plan. Anticipatory guidance given. Patient agrees to follow-up as directed and is aware of reasons to seek care at the emergency department. Portions of
== END 2023-08-17 11:49 | disposition home or self-care (01) ==
PROVIDERS: Emergency Provider Nurse Practitioner; PCP Emergency Medicine
DX: U07.1 COVID-19 (principal)
CPT/HCPCS: 87081; 87426; 87804; 87880; 99213; C9803; G0463